=== PATIENT | female | born 1995 | race Caucasian/White ===

== ENCOUNTER 2016-08-11 13:51 | Day surgery (SDC) | payer BC, OTHER ==
[2016-08-05 12:07] VITALS: BMI 27.1
[~2016-08-11 13:51] MED LIST: DEXAMETHASONE SOD PHOSPHATE 10 MG/ML 1 ML VIAL IV ONE; HEPARIN SODIUM,PORCINE 5,000 UNIT/ML 1 ML VIAL SQ ONE; HYDROmorphone 1 MG/ML 1 ML SYRINGE IVP PRN; LACTATED RINGERS 1,000 ML IV SCH; LIDOCAINE 1% 20 ML VIAL (10MG/ML) FOR IV START INTRADERMA PRN; MIDAZOLAM 2 MG/2 ML VIAL IV PRN; ONDANSETRON 4 MG/2 ML VIAL IVP ONE; SCOPOLAMINE 1.5MG/72HR PATCH TRANSDERM ONE; ceFAZolin 2 GM in SODIUM CHLORIDE 0.9% 100 ML IVPB ONE
[2016-08-11] MEDS ORDERED: HEPARIN SODIUM,PORCINE 5,000 UNIT/ML 1 ML VIAL SQ ONE (15:40)
[2016-08-11] MEDS ORDERED: LIDOCAINE (PF) 10 MG/ML 2 ML VIAL SQ ONE ×2 (16:01→17:08)
[2016-08-11] MEDS ORDERED: GLYCOPYRROLATE 0.2 MG/ML 2 ML VIAL ONE (16:22)
[2016-08-11] MEDS ORDERED: LIDOCAINE 1% INJ 10MG/ML (20 ML MDV) ONE (16:22)
[2016-08-11] MEDS ORDERED: PROPOFOL 10 MG/ML 20 ML VIAL IV ONE (16:22)
[2016-08-11] MEDS ORDERED: fentaNYL (PF) 50 MCG/ML 2 ML AMP ONE (16:22)
[2016-08-11] MEDS ORDERED: ROCURONIUM BROMIDE 10 MG/ML 10 ML VIAL IV ONE (16:22)
[2016-08-11] MEDS ORDERED: MIDAZOLAM 2 MG/2 ML VIAL ONE (16:22)
[2016-08-11] MEDS ORDERED: NEOSTIGMINE 1 MG/ML 10 ML VIAL ONE (16:22)
[2016-08-11] MEDS ORDERED: LACTATED RINGERS 1,000 ML IV ONE (17:14)
--- NOTE | 2016-08-11 17:16 | P.OP ---
Date of Procedure: 08/11/16 Preoperative Diagnosis: bloody Nipple discharge right breast Postoperative Diagnosis: Same Procedure(s) Performed: Duct exploration Anesthesia: SLY Surgeon: Bindu Bragg Estimated Blood Loss (ml): 5 IV fluids (ml): 700 Pathology: other (Breast tissue) Condition: stable Disposition: PACU Indications for Procedure: Bloody nipple discharge right breast Operative Findings: Fibrocystic change Description of Procedure: Patient was taken to the operating room and following induction of anesthesia the right breast was prepped and draped in a sterile fashion. Palpation revealed discharged from the 6:00 area of the right nipple. This appeared to be very dark and had previously had nipple discharge tested as well as blood. A circumareolar incision was made on the lateral aspect of the ileal loop. This was dissected free to the area of the duct which appeared to be causing the discharge. There is a dilated duct noted present under the nipple area. This tissue was dissected free from the nipple and dissected free superiorly down to the muscle of the pectoralis major. The specimen was removed. After assured that hemostasis was attained the wound was irrigated. The deep tissues were reapproximated using 3-0 Vicryl suture. The skin was closed using 4-0 Monocryl. 7 mL of 1% lidocaine was injected. Patient tolerated the procedure in stable condition. All instrument and sponge counts were correct at the end of the case.
--- NOTE | 2016-08-11 17:17 | P.DS ---
Providers Attending physician: Bindu Bragg Primary care physician: Alem Mayer Plan - Discharge Summary Discharge Medication List Albuterol Inhaler (Unknown Dose) 1 puff INHALATION PRN 08/05/16 [History] FLUoxetine HCL [PROzac] 20 mg PO DAILY 08/05/16 [History] Follow up Appointment(s)/Referral(s): Bindu Bragg MD [STAFF PHYSICIAN] - 1 Week Patient Instructions/Handouts: *Surgery [facility] - Scopalamine Patch Instructions Activity/Diet/Wound Care/Special Instructions: Drive today Do not drive for taking pain medicine Patient may shower after 48 hours Discharge Disposition: HOME SELF-CARE
[2016-08-11 17:38] VITALS: RESP 18; TEMP 97.2
[2016-08-11 18:01] VITALS: PULSE 76
[2016-08-11 18:54] VITALS: BP 107/69
== END 2016-08-11 19:14 | disposition home or self-care (01) ==
LOC: OR 13:51
PROVIDERS: ATTEND Surgery
DX: N64.52 Nipple discharge (principal); N60.31 Fibrosclerosis of right breast; N60.01 Solitary cyst of right breast; N60.81 Other benign mammary dysplasias of right breast; N60.21 Fibroadenosis of right breast; N62 Hypertrophy of breast; N60.41 Mammary duct ectasia of right breast; Z88.0 Allergy status to penicillin; Z91.018 Allergy to other foods; J45.990 Exercise induced bronchospasm; Z79.899 Other long term (current) drug therapy
CPT/HCPCS: 81025; 88307; 19110; J2250; J2001 ×2; J1644; J1100; J2710; J0690; J2405; J3010; J1170; J2704

== ENCOUNTER → 2018-03-09 | Outpatient (CLI) | payer BC ==
[2018-03-09 10:54] LABS: Basophils % (A) 0 %; Eosinophils # (A) 0.3 k/uL (0-0.7); Eosinophils % (A) 4 %; HCT 40.4 % (34.0-46.0); HGB 13.4 gm/dL (11.4-16.0); Lymphocytes # (A) 1.8 k/uL (1.0-4.8); Lymphocytes % (A) 23 %; MCH 28.5 pg (25.0-35.0); MCHC 33.1 g/dL (31.0-37.0); Monocytes # (A) 0.4 k/uL (0-1.0); Monocytes % (A) 4 %; Neutrophils # (A) 5.2 k/uL (1.3-7.7); Neutrophils % (A) 66 %; Platelet Count 305 k/uL (150-450)
== END | disposition home or self-care (01) ==
LOC: LABPAT 10:11
PROVIDERS: ATTEND Obstetrics & Gynecology Obstetrics
DX: Z01.812 Encounter for preprocedural laboratory examination (principal)
CPT/HCPCS: 36415; 85025

== ENCOUNTER 2018-03-29 06:48 | Day surgery (SDC) | payer BC, OTHER ==
[2018-03-22 14:56] VITALS: BMI 29.6
--- NOTE | 2018-03-28 11:19 | HP ---
HISTORY AND PHYSICAL Preoperative history and physical for surgery tomorrow 03/29/2018. HISTORY OF PRESENT ILLNESS: This is a very pleasant 22-year-old female, G2, P1-0-1-1 that presents for permanent sterilization. Patient states her periods are irregular in nature, occurring sporadically and lasting for a variable length of time. She denies dysmenorrhea. She states she has tried multiple options for control in the past and has been unsuccessful. She has tried an IUD after the of her child and "it was not the right thing for her". She also tried a pill and she was not happy with that either. PAST MEDICAL HISTORY: Significant for asthma and a history of gallstones. PAST SURGICAL HISTORY: Cholecystectomy, which was done in 2013. MEDICATIONS: She is on Abilify. ALLERGIES: AMOXICILLIN, AUGMENTIN and ALL PENICILLINS cause swelling for this patient. FAMILY MEDICAL HISTORY: Significant for depression in her father. 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 She did sustain a miscarriage in November of 2017. As stated above, her periods are irregular in nature coming at irregular intervals and bleeding for irregular frequencies. SOCIAL HISTORY: She is a nonsmoker and admits to minimal alcohol use and denies recreational drug use. She is employed as a . REVIEW OF SYSTEMS: She denies body aches, night sweats. Denies chest pain, syncope. Denies shortness of breath, wheezing, cough. No nausea, vomiting, diarrhea, constipation. She admits to irregular menses and menorrhagia. She denies urgency, frequency, dysuria, or urinary incontinence. PHYSICAL EXAMINATION: She is a well-nourished, well-developed, alert female in no acute distress. Heart is regular rate and rhythm. Lungs are clear to auscultation bilaterally. Abdomen is soft, nontender. GENITOURINARY: Her external vaginal anatomy is appropriate for age. The vaginal wall is pink and well rugated. The cervix is without lesion. Uterus is noted to be normal in size and mobile in nature. No adnexal masses are noted. MENTAL STATUS: She is grossly oriented to person, place, and time. She has a normal affect with a normal mood. ASSESSMENT: Family planning. She desires laparoscopic tubal ligation as she is done with childbearing. I did discuss with her irregular menses at length and the options for treatment, which she declines. PLAN: We will plan for laparoscopic tubal ligation with Falope rings. Risks of surgery are reviewed with the patient in detail including, but not limited to infection, bleeding, damage to bladder, bowel, ureteric or other pelvic structures. The patient states understanding and wishes to proceed. For surgery, tomorrow, March 29. MMODL / IJN: [id number] /
[~2018-03-29 06:48] MED LIST changes: +ACETAMINOPHEN IV (For NPO) 100 ML IVPB ONE; -HEPARIN SODIUM,PORCINE 5,000 UNIT/ML 1 ML VIAL SQ ONE; +HYDROmorphone 0.5 MG/0.5 ML SYRINGE IVP PRN; -HYDROmorphone 1 MG/ML 1 ML SYRINGE IVP PRN; -LIDOCAINE 1% 20 ML VIAL (10MG/ML) FOR IV START INTRADERMA PRN; +Pre Op ABX Message 1 EACH MISC MISCELLANE ONE; -ceFAZolin 2 GM in SODIUM CHLORIDE 0.9% 100 ML IVPB ONE
[2018-03-29] MEDS ORDERED: LIDOCAINE 1% 20 ML VIAL (10MG/ML) FOR IV START INTRADERMA ONE (07:34)
[2018-03-29] MEDS ORDERED: PROPOFOL 10 MG/ML 20 ML VIAL IV ONE (08:24)
[2018-03-29] MEDS ORDERED: KETOROLAC 30 MG/ML 1 ML VIAL ONE (08:24)
[2018-03-29] MEDS ORDERED: GLYCOPYRROLATE 0.2 MG/ML 2 ML VIAL ONE (08:24)
[2018-03-29] MEDS ORDERED: NEOSTIGMINE 1 MG/ML 10 ML VIAL ONE (08:24)
[2018-03-29] MEDS ORDERED: MIDAZOLAM 2 MG/2 ML VIAL ONE (08:24)
[2018-03-29] MEDS ORDERED: fentaNYL (PF) 50 MCG/ML 2 ML AMP ONE (08:24)
[2018-03-29] MEDS ORDERED: ROPIVACAINE 5 MG/ML 30 ML VIAL MISCELLANE ONE ×2 (08:45)
--- NOTE | 2018-03-29 09:14 | P.OP ---
Date of Procedure: 03/29/18 Preoperative Diagnosis: Family planning Postoperative Diagnosis: Same Procedure(s) Performed: Laparoscopic tubal ligation with Falope-Rings Anesthesia: SLY Surgeon: Shaista Busch Estimated Blood Loss (ml): 3 IV fluids (ml): 500 Urine output (ml): 100 Pathology: none sent Condition: stable Disposition: PACU Indications for Procedure: Patient requesting permanent sterilization Operative Findings: Normal uterus with polycystic appearing ovaries Description of Procedure: Patient was seen in the preoperative suite and informed consent was obtained. Risks were reviewed with in detail including but not limited to infection, bleeding, damage to bladder, bowel, ureteric injury. Patient stated understanding and informed consent was obtained next para patient was taken to the operating suite where general anesthesia was obtained without difficulty by the anesthesia department. She was prepped and draped in the normal sterile fashion in dorsal lithotomy position. Red rubber catheter was then used to drain the bladder clear yellow urine weighted speculum was placed the anterior lip of the cervix was visualized and grasped with a single-tooth tenaculum. An acorn uterine manipulator was advanced into the endocervical canal as a means to manipulate the uterus throughout the procedure. Attention was then turned to the patient's abdomen where in the umbilical fold a small skin incision was made through this incision the Veress needle was placed. Once the Veress needle was deemed to be in the appropriate position with a drop of CO2 pressure with insufflation of CO2 gas. CO2 insufflation was allowed to occur. Approximately 3 L of gas were used to obtain pneumoperitoneum. At this time the 5 mm trocar and sleeve is placed through the incision and toward the pneumoperitoneum. The above noted findings were visualized. At this point the additional port sites is placed in the right lower quadrant this is an 8 mm port and placed under direct visualization. The Falope ring applicator had been opened and the left fallopian tube was grasped in a normal fashion and operated according to customs broker's instructions. A small amount of bleeding was noted attention was then turned to the patient's right fallopian tube which was grasped with the Falope ring applicator and the ring was applied without difficulty. On inspection the patient's left fallopian tube small amount of bleeding was noted therefore Kleppinger was opened and hemostasis was appreciated with bipolar cautery. All instruments were removed from the patient 's abdomen at this time. The skin incisions were closed with 4-0 Vicryl in a subcuticular fashion. The recovery room in nuclear was removed along with a single-tooth tenaculum and hemostasis was appreciated. Next All counts are correct 2 patient tolerated procedure well and was taken the recovery room awake and in stable condition.
[2018-03-29 09:35] VITALS: TEMP 97.9
[2018-03-29] MEDS ORDERED: LACTATED RINGERS 1,000 ML IV ONE (09:43)
[2018-03-29] MEDS: MEPERIDINE 50 MG/ML SYRINGE IVP ONE ×2 (09:55→10:08)
[2018-03-29 10:03] VITALS: RESP 16
[2018-03-29 11:03] VITALS: BP 99/65; PULSE 74
== END 2018-03-29 11:26 | disposition home or self-care (01) ==
LOC: OR 06:48
PROVIDERS: ATTEND Obstetrics & Gynecology Obstetrics
DX: Z30.2 Encounter for sterilization (principal); E28.2 Polycystic ovarian syndrome; N92.6 Irregular menstruation, unspecified; J45.909 Unspecified asthma, uncomplicated; Z79.899 Other long term (current) drug therapy; Z88.0 Allergy status to penicillin; Z90.49 Acquired absence of other specified parts of digestive tract
CPT/HCPCS: 81025; 58671; J2250; J1100; J2710; J2175; J2405; J3010; J1885; J2795; J0131; J2704

== ENCOUNTER → 2019-12-07 | Outpatient (CLI) | payer BC, OTHER ==
[2019-12-07 09:20] VITALS: BP 107/70; PULSE 64; RESP 18; TEMP 97.6
--- NOTE | 2019-12-07 09:43 | P.GSHP ---
History of Present Illness H&P Date: 12/07/19 Chief Complaint: left nipple discharge Ariana is a 24-year-old white female seen in consultation for Dr. Aburto who presents with a left nipple discharge. The discharge is brown in color by history. She is status post right nipple discharge in 2017 for which she und erwent a duct exploration as this was bloody. Pathology revealed benign breast with fibrocystic changes including fibrosis, cysts, apocrine metaplasia and sclerosing adenosis. 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 It is not having any right nipple discharge at this time. The discharge started approximately 3 months ago. He started on control pills approximately 10 months ago. She is not experiencing any pain in the breast. The discharge occurs with palpation. She does not complain of any lumps masses or nodules in her breast. She has not had any recent radiographic evaluation of the breast. She has no history of any trauma or infection in the breast. She drinks 1 coffee in the morning and 1 pop per day. She does not smoke and is not exposed to secondhand smoke. She is chocolate rarely. She does use control pills. Family history: 1. maternal grandmother: leukemia 2. paternal uncle: colon cancer Hormonal history: Menarche: 11 , breast fed: no, age at : 19 periods regular on BCP Surgical history: 1. Right breast duct exploration 2. Cholecystectomy 3. Exploratory laparotomy/ pelvic pain 4. tubal 5. tonsillectomy Medical History: 1. anxiety Social History: smoke: none alcohol: 1 weekend/month drugs: none - Constitutional Constitutional: Denies chills, Denies fever - EENT Eyes: denies blurred vision, denies pain Ears: deny: decreased hearing, tinnitus Ears, nose, mouth and throat: Denies headache, Denies sore throat - Breasts Breasts: bilateral: as per HPI - Cardiovascular Cardiovascular: Denies chest pain, Denies shortness of breath - Respiratory Respiratory: Denies cough, Denies 7 - Gastrointestinal Gastrointestinal: Denies abdominal pain, Denies diarrhea, Denies nausea, Denies vomiting - Genitourinary (Female) Genitourinary: Denies dysuria, Denies hematuria - Menstruation Comment: on BCP (krystin) Menstruation: Reports period normal - Musculoskeletal Musculoskeletal: Denies myalgias - Integumentary Integumentary: Denies pruritus, Denies rash - Neurological Neurological: Denies numbness, Denies weakness - Psychiatric Psychiatric: Reports anxiety - Endocrine Endocrine: Denies fatigue, Denies weight change - Hematologic/Lymphatic Comment: none - Allergic/Immunologic Allergic/Immunologic: Reports as per HPI Past Medical History Past Medical History: Asthma Additional Past Medical History / Comment(s): Exercise induced asthma, improved. History of Any Multi-Drug Resistant Organisms: None Reported Past Surgical History: Cholecystectomy, Tonsillectomy Past Anesthesia/Blood Transfusion Reactions: No Reported Reaction Past Psychological History: Anxiety Smoking Status: Never smoker Past Alcohol Use History: Rare Past Drug Use History: None Reported - Past Family History Mother Family Medical History: No Reported History Medications and Allergies Home Medications Medication Instructions Recorded Confirmed Type Karvia 1 tab PO DAILY 12/07/19 12/07/19 History Propranolol HCl [Inderal] 60 mg PO DAILY PRN 12/07/19 12/07/19 History Sulfamethox-Tmp 800-160Mg [Bactrim 1 tab PO Q12HR 12/07/19 12/07/19 History DS 800-160 mg] Allergies Allergy/AdvReac Type Severity Reaction Status Date / Time amoxicillin [From Augmentin] Allergy Rash/Hives Verified 12/07/19 09:15 cinnamon Allergy Anaphylaxis Verified 03/22/18 14:51 clavulanic acid Allergy Rash/Hives Verified 12/07/19 09:15 [From Augmentin] Penicillins Allergy Rash/Hives Verified 03/22/18 14:51 peppermint Allergy Anaphylaxis Verified 03/22/18 14:51 Surgical - Exam Vital Signs Temp Pulse Resp BP Pulse Ox 97.6 F 64 18 107/70 100 12/07/19 09:17 12/07/19 09:17 12/07/19 09:17 12/07/19 09:17 12/07/19 09:17 BMI 25.9 - General well developed, well nourished, no distress - Eyes normal ocular movement - ENT no hearing loss, no congestion - Neck no masses, trachea midline - Respiratory normal respiratory effort, clear to auscultation - Cardiovascular Rhythm: regular Heart Sounds: normal: S1, S2 - Abdomen Abdomen: soft, bowel sounds - Integumentary normal turgor - Neurologic no disoriented, no combative - Musculoskeletal normal gait, normal posture - Psychiatric oriented to time, oriented to person, oriented to place, speech is normal, memory intact breast exam: BRA 36D inspection: no nipple inversion, ptosis grade 2 palpation: Right breast: Well-healed scar from prior biopsy, multiple positional exam fibrocystic changes, no dominant masses or nodules of concern, no nipple discharge Right axilla: No adenopathy of concern Left breast: Multi-positional exam no dominant masses or nodules of concern, with palpation there is nipple discharge it is clear in nature and guaiac study was done on this which was negative for blood multi-positional exam fibrocystic changes Discharge from the left nipple was expressed, this was placed on a guaiac card and this is noted to be guaiac negative Assessment and Plan Assessment: Impression: 1. Fibrocystic breast changes bilateral 2. Prior right bloody nipple discharge from biopsy was benign 3. Left breast nipple discharge believed to be fibrocystic in nature this was guaiac negative Plan: 1. Bilateral mammogram 2. Stop caffeine intake 3. Follow-up here in 3 months time if the discharge becomes worse she will follow sooner At this time there is no concern that she should undergo an open biopsy. I believe that the discharge is most likely fibrocystic in nature. Cc: Dr. Alem Mayer, Dr. Aburto encounter 35 minutes
== END ==
LOC: WWCWWP 08:48
PROVIDERS: ATTEND Surgery
DX: Z53.9 Procedure and treatment not carried out, unspecified reason (principal)

== ENCOUNTER → 2020-01-09 | Outpatient (CLI) | payer BC, OTHER ==
--- NOTE | 2020-01-09 11:32 | MM ---
Reason for exam: clinical finding. Last mammogram was performed 3 years and 7 months ago. History: Benign excisional biopsy of the right breast, 2017. Taking hormonal contraceptives for 1 year beginning at age 23. Indicated problem(s): non-bloody discharge in the left breast. Physical Findings: Nurse Summary: 1cm nodule in the left breast at 11 o'clock (nurse mj). [facility] Diagnostic Mammo w CAD MAGALI Bilateral CC and MLO view(s) were taken. Prior study comparison: June 16, 2016, mammogram. The breast tissue is heterogeneously dense. This may lower the sensitivity of mammography. Palpable marker 11 o'clock left breast. No significant new findings when compared with previous films. These results were verbally communicated with the patient and result sheet given to the patient on 01/09/20. ASSESSMENT: Incomplete: need additional imaging evaluation, BI-RAD 0 RECOMMENDATION: Ultrasound of the left breast.
--- NOTE | 2020-01-09 11:34 | USB ---
Reason for exam: additional evaluation requested from abnormal screening. History: Benign excisional biopsy of the right breast, 2017. Taking hormonal contraceptives for 1 year beginning at age 23. US Breast LT Left complete breast ultrasound includes all four quadrants, the retroareolar region and axilla. Finding demonstrates a 0.5 x 0.4 x 0.3cm oval lymph node at 4 o'clock and duct ectasia at the posterior nipple. These results were verbally communicated with the patient and result sheet given to the patient on 01/09/20. ASSESSMENT: Benign, BI-RAD 2 RECOMMENDATION: Routine screening mammogram of both breasts at age 34. Manage patient on a clinical basis.
== END | disposition home or self-care (01) ==
LOC: RADMAMWWP 09:30
PROVIDERS: ATTEND Surgery
DX: N64.52 Nipple discharge (principal); N63.22 Unspecified lump in the left breast, upper inner quadrant
CPT/HCPCS: 77066

== ENCOUNTER → 2020-01-12 | Outpatient (CLI) | payer BC, OTHER ==
[2020-01-12 13:06] VITALS: BP 109/72; PULSE 61; RESP 18; TEMP 98.3
--- NOTE | 2020-01-12 13:06 | P.PN ---
Progress Note - Text Progress Note Date: 01/12/20 Gbarielle is a 24-year-old white female who was initially seen on 6424 left nipple discharge. The patient was felt to have fibrocystic changes in her breast and on examination she did have some clear discharge antibiotics study was negative for blood. She has not had any recent radiographic evaluations. She was recommended to have a mammogram this was performed on 7720. This was felt to be completed and an ultrasound of the left breast was performed. Findings demonstrated a 0.5 cm x 0.3 cm oval lymph node at 4:00 and duct ectasia at the posterior nipple. The patient did have some spontaneous discharge noted in her bra. Again I believe that these are related to fibrocystic changes she has been reassured. However somewhat of concern she just found a maternal did develop breast cancer in her 20s. Following her very closely. She will be seen again in 6 months time. She was given a booklet regarding breast pain which also talked fibrocystic breast changes. She was given the option of attempting a trial of primrose oil. If she wasn't concerned she will call us sooner. At this time there is nothing which would warrant interventional biopsy radiographically or on physical exam. CC: Alem Mayer
== END | disposition home or self-care (01) ==
LOC: WWCWWP 12:21
PROVIDERS: ATTEND Surgery
DX: Z53.9 Procedure and treatment not carried out, unspecified reason (principal)

== ENCOUNTER → 2020-07-12 | Outpatient (CLI) | payer BC, OTHER ==
[2020-07-12 12:50] VITALS: BP 101/65; PULSE 67; RESP 14; TEMP 98.2
--- NOTE | 2020-07-12 13:17 | P.PN ---
Subjective Progress Note Date: 07/12/20 Principal diagnosis: nipple discharge Ariana is a 24-year-old white female seen in consultation for Dr. Aburto who presented with a left nipple discharge. The discharge was brown in color by history. She is status post right nipple discharge in 2016 for which she underwent a duct exploration as this was bloody. Pathology revealed benign breast with fibrocystic changes including fibrosis, cysts, apocrine metaplasia and sclerosing adenosis. 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 She had a mammogram performed on 7719. This was felt to be incomplete in an ultrasound of the left breast was performed. Findings demonstrated a lymph node at 4:00 and duct ectasia at the posterior nipple. The patient did have some spontaneous discharge noted in her bra at that time, this has stopped and it was felt to be fibrocystic in nature. She has no history of any trauma or infection in the breast. She is not having any discharge at this time. She is not complaining of any pain masses or nodules in either breast. Caffeine: She has decreased her caffeine intake She does not smoke and is not exposed to secondhand smoke. She is chocolate rarely. She does not use control pills, at this time stopped in May Family history: 1. maternal grandmother: leukemia 2. paternal uncle: colon cancer 3. maternal aunt breast cancer in her 20's, she from MVA Hormonal history: Menarche: 11 , breast fed: no, age at : 19 periods regular on BCP Surgical history: 1. Right breast duct exploration 2. Cholecystectomy 3. Exploratory laparotomy/ pelvic pain 4. tubal 5. tonsillectomy Medical History: 1. anxiety Social History: smoke: none alcohol: 1 weekend/month drugs: none - Constitutional Constitutional: Denies chills, Denies fever - EENT Eyes: denies blurred vision, denies pain Ears: deny: decreased hearing, tinnitus Ears, nose, mouth and throat: Denies headache, Denies sore throat - Breasts Breasts: bilateral: as per HPI - Cardiovascular Cardiovascular: Denies chest pain, Denies shortness of breath - Respiratory Respiratory: Denies cough - Gastrointestinal Gastrointestinal: Denies abdominal pain, Denies diarrhea, Denies nausea, Denies vomiting - Genitourinary (Female) Genitourinary: Denies dysuria, Denies hematuria - Menstruation Comment: on BCP (karvia) Menstruation: Reports period normal - Musculoskeletal Musculoskeletal: Denies myalgias - Integumentary Integumentary: Denies pruritus, Denies rash - Neurological Neurological: Denies numbness, Denies weakness - Psychiatric Psychiatric: Reports anxiety - Endocrine Endocrine: Denies fatigue, Denies weight change - Hematologic/Lymphatic Comment: none - Allergic/Immunologic Allergic/Immunologic: Reports as per HPI Objective - Vital Signs Vital signs: Vital Signs Temp 98.2 F 07/12/20 12:45 Pulse 67 07/12/20 12:45 Resp 14 07/12/20 12:45 BP 101/65 07/12/20 12:45 Pulse Ox 97 07/12/20 12:45 Intake & Output 07/11/20 07/12/20 07/12/20 18:59 06:59 18:59 Weight 59.874 kg - Exam BMI 24.1 - Constitutional General appearance: Present: average body habitus - EENT ENT: Present: hearing grossly normal - Neck Neck: Present: normal ROM - Respiratory Respiratory: bilateral: CTA - Cardiovascular Rhythm: regular Heart sounds: normal: S1, S2 - Gastrointestinal General gastrointestinal: Present: normal bowel sounds, soft - Integumentary Integumentary: Present: normal turgor - Musculoskeletal Musculoskeletal: Present: gait normal - Psychiatric Psychiatric: Present: A&O x's 3, appropriate affect - Additional findings Additional findings: breast exam: BRA 40C inspection: grade 2 ptosis bilateral palpation: right breast: Well-healed scar from prior surgery, multiple positional exam fibrocystic changes, no nipple discharge no dominant masses or nodules of concern Right axilla: No adenopathy of concern Left breast: Multiple positional exam fibrocystic changes no nipple discharge Left axilla: No adenopathy of concern Assessment and Plan Assessment: Impression: 1. Family history of cancer 2. Fibrocystic breast changes 3. Bilateral nipple discharge status post right duct exploration the left nipple discharge is decreased 4. Patient has decreased her caffeine intake and is not using control pills at this time seems to correlate with decreased nipple discharge Plan: 1. I reassured the patient today do not think there is anything worrisome I believe that the discharge is most likely fibrocystic in nature 2. Close surveillance 3. Routine screening mammogram at age 34 4. Follow-up on as-needed basis CC: [place] encounter; 15 minutes, > 50% of time on planning and counselling
== END | disposition home or self-care (01) ==
LOC: WWCWWP 12:29
PROVIDERS: ATTEND Surgery
DX: Z53.9 Procedure and treatment not carried out, unspecified reason (principal)

== ENCOUNTER → 2023-10-15 | Outpatient (CLI) | payer OTHER ==
--- NOTE | 2023-10-15 15:00 | P.PN ---
Subjective Progress Note Date: 10/15/23 10-15-23 Principal diagnosis: Ariana is a 28 year old femlae with a complaint of left nipple discharge. She has been seen in the past with bilateral nipple discharge. Initially it was left nipple discharge which was brown in color and stopped. She then developed right nipple discharge in 2016 for which she underwent a duct exploration as this was bloody. Pathology at that time revealed benign breast with fibrocystic changes including fibrosis, cysts, apocrine metaplasia, and sclerosing adenosis. 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 March 26, 2023 left breast ultrasound revealed a simple cyst at the 3 o'clock position with resolved intramammary lymph node. Prior to that she had ultrasound studies of the breast performed in 2021, no biospy were recommended. She is complaining of bilateral breast pain in the UOQ. It is not cyclical. She is not aware of anything that precipitates this pain. It occurs once a week, it is at different times in each breast. She is not compalining of any lumps, masses, or nodules. The pain is burning and sharp in nature. On a scale of 1-10 it is about an 8, it last for about 5-10 minutes. She isnot having pain now She is also complaining of left nipple discharge, it is dark brown and it is noted in the shower. It is only when she showers. It is not noted to be from a specific duct. She cannot make it happen, it is dark brown no blood She is not having any right nipple discharge. She was given a swab to take home to test the nipple discharge; the results were; cultures were obtained which revealed staph coag negative and rare few diphtheroid ease. On the slide there were many gram-positive cocci and moderate gram-negative rods. The patient was put on an antibiotic with resolution of the discharge but it came back again. Caffeine: 1 pop/day; 1 cup coffee/day She does not smoke and is not exposed to secondhand smoke. chocolate: weekly BCP: used in the past 2 years, not now, stopped about 1 year ago Family history: 1. maternal grandmother: leukemia 2. paternal uncle: colon cancer 3. maternal aunt breast cancer in her 20's, she from MVA Hormonal history: Menarche: 11 , breast fed: no, age at : 19 periods irregular; she has not had a period since June, test (-), she has had weight gain Surgical history: 1. Right breast duct exploration 2. Cholecystectomy 3. Exploratory laparotomy/ pelvic pain 4. tubal 5. tonsillectomy 6. bladder procedure for leakage 7. scheduled for umbilical hernia repair on 10-27-23 Medical History: 1. anxiety Social History: smoke: none alcohol: none drugs: none - Constitutional Constitutional: Denies chills, Denies fever - EENT Eyes: denies blurred vision, denies pain Ears: deny: decreased hearing, tinnitus Ears, nose, mouth and throat: Denies headache, Denies sore throat - Breasts Breasts: bilateral: as per HPI - Cardiovascular Cardiovascular: Denies chest pain, Denies shortness of breath - Respiratory Respiratory: Denies cough - Gastrointestinal Gastrointestinal: Denies abdominal pain, Denies diarrhea, Denies nausea, Denies vomiting - Genitourinary (Female) Genitourinary: Denies dysuria, Denies hematuria - Menstruation Comment: Menstruation: no lencho=iod for several months - Musculoskeletal Musculoskeletal: Denies myalgias - Integumentary Integumentary: Denies pruritus, Denies rash - Neurological Neurological: Denies numbness, Denies weakness - Psychiatric Psychiatric: Reports anxiety - Endocrine Endocrine: Denies fatigue, Denies weight change - Hematologic/Lymphatic Comment: none - Allergic/Immunologic Allergic/Immunologic: Reports as per HPI Objective - Constitutional General appearance: Present: cooperative - EENT Eyes: Present: EOMI ENT: Present: hearing grossly normal - Neck Neck: Present: normal ROM - Respiratory Respiratory: bilateral: CTA - Cardiovascular Heart sounds: normal: S1, S2 - Integumentary Integumentary: Present: normal turgor - Musculoskeletal Musculoskeletal: Present: gait normal - Psychiatric Psychiatric: Present: A&O x's 3, appropriate affect, intact judgment & insight - Additional findings Additional findings: breast exam: BRA 40D inspection: grade 2 ptosis bilateral palpation: right breast: Well-healed scar from prior surgery, multiple positional exam fibrocystic changes, no nipple discharge no dominant masses or nodules of concern Right axilla: No adenopathy of concern Left breast: Multiple positional exam fibrocystic changes no nipple discharge Left axilla: No adenopathy of concern no nipple discharge on todays exam on either side Assessment and Plan Assessment: Impression: 1. Family history of cancer 2. Fibrocystic breast changes 3. Left nipple discharge 4. Menstrual cycle has not had 1 for approximately 4 months, test negative to this point 5. Breast pain Plan: 1. Bilateral mammogram and bilateral breast ultrasound 2. Appointment with allergist regarding menstrual cycle; she works at [employer] and will make an appointment 3. Follow-up here after bilateral mammogram and breast ultrasound 4. If patient has nipple discharge which can be demonstrated I would like to s ee her at that time 5. We have discussed lifestyle modifications regarding the breast pain. We have discussed avoiding caffeine, and possibly primrose oil. We have discussed the book Solving the Mystery of breast pain and she is going to consider finding this on [employer]. At this time the patient has no demonstrable nipple discharge so nothing can be done to test this. We will get the radiographic evaluations and further recommendation to follow CC: Cristian
[2023-10-15 15:02] VITALS: BP 113/76; PULSE 60; RESP 17; TEMP 98.7
== END ==
LOC: WWCWWP 13:39
PROVIDERS: ATTEND Surgery
DX: Z32.02 Encounter for pregnancy test, result negative (principal); N64.52 Nipple discharge; N60.12 Diffuse cystic mastopathy of left breast; N64.4 Mastodynia; N60.82 Other benign mammary dysplasias of left breast; N62 Hypertrophy of breast; Z80.3 Family history of malignant neoplasm of breast; Z88.0 Allergy status to penicillin; Z88.8 Allergy status to other drugs, medicaments and biological substances; Z91.018 Allergy to other foods